=== PATIENT | male | born 1935 | race Two or more races ===

== ENCOUNTER 2019-10-02 08:45 | Emergency (ER) | payer MEDICARE ==
[~2019-10-02] VITALS: Ht 172.7 cm; Wt 70.9 kg
[2019-10-02 09:09] VITALS: BP 148/66
--- NOTE | 2019-10-02 09:23 | PHYS DOC ---
Past History Past Medical History: COPD, High Cholesterol, Hypertension, Hypothyroid Additional Past Surgical Histo: AAA repair Smoking: Quit Greater Than 1 Year Adult General Chief Complaint Chief Complaint: LOWER EXTREMITY SWELLING HPI HPI Patient is an 84-year-old male who presents to the emergency department for evaluation. He had an endovascular AAA repair last Monday at [facility], and was released Monday. He has developed pain in his right leg, in his medial though, worsened with movement. Also has developed some pedal edema, which seems slightly more prominent on the right than left. Denies chest pain or shortness of breath, denies pleuritic pain, dizziness or lightheadedness. There are no alleviating or exacerbating factors to his symptoms, except that movement worsens his pain. Review of Systems Review of Systems Constitutional: Denies fever or chills [] Eyes: Denies change in visual acuity, redness, or eye pain [] HENT: Denies nasal congestion or sore throat [] Respiratory: Denies cough or shortness of breath [] Cardiovascular: The patient denies any shortness of breath, chest pain, palpitations, or orthopnea [] GI: Denies abdominal pain, nausea, vomiting, bloody stools or diarrhea [] : Denies dysuria or hematuria [] Musculoskeletal: Denies back pain or joint pain [] Integument: Denies rash or skin lesions [] Neurologic: Denies headache, focal weakness or sensory changes [] Endocrine: Denies polyuria or polydipsia [] All other systems were reviewed and found to be within normal limits, except as documented in this note. Allergies Allergies Allergies Coded Allergies Type Severity Reaction Last Updated Verified No Known Drug Allergies 10/02/19 No Physical Exam Physical Exam PHYSICAL EXAM: CONSTITUTIONAL: Well developed, well nourished HEAD: normocephalic, atraumatic EENT: PERRL, EOMI. Conjunctivae normal color, sclerae non-icteric; moist mucous membranes. NECK: Supple, non-tender; no meningismus. LUNGS: Lungs CTA, breathing even and unlabored. Normal air movement. HEART: Regular rate and rhythm, no murmur CHEST: No deformity; non-tender ABDOMEN: The abdomen is soft, and non-tender, no masses or bruits. EXTREM: Normal ROM; no deformity, no calf tenderness. Normal pulses palpable in all extremities. There is mild bilateral pitting pedal edema, questionably more prominent on the right than on the left. There is an approximately golf ball size nodular lesion in the right groin, possibly related to postoperative hematoma, with a clean incision in the right groin. There is no significant warmth or erythema to the skin. There is no reproducible tenderness to palpation to the soft tissues of the medial right thigh. SKIN:, Warm, dry, no diaphoresis, no rashes. NEURO: Alert; normal speech and cognition; CN's grossly intact; strength grossly intact without focal deficit. BACK: No CVA TTP. Current Patient Data Lab Results Laboratory Tests Test 10/02/19 09:06 White Blood Count 8.5 x10^3/uL Red Blood Count 3.98 x10^6/uL Hemoglobin 12.4 g/dL Hematocrit 37.1 % Mean Corpuscular Volume 93 fL Mean Corpuscular Hemoglobin 31 pg Mean Corpuscular Hemoglobin Concent 34 g/dL Red Cell Distribution Width 13.3 % Platelet Count 178 x10^3/uL Neutrophils (%) (Auto) 69 % Lymphocytes (%) (Auto) 16 % Monocytes (%) (Auto) 11 % Eosinophils (%) (Auto) 4 % Basophils (%) (Auto) 1 % Neutrophils # (Auto) 5.9 x10^3uL Lymphocytes # (Auto) 1.4 x10^3/uL Monocytes # (Auto) 0.9 x10^3/uL Eosinophils # (Auto) 0.4 x10^3/uL Basophils # (Auto) 0.0 x10^3/uL Sodium Level 140 mmol/L Potassium Level 3.7 mmol/L Chloride Level 104 mmol/L Carbon Dioxide Level 25 mmol/L Anion Gap 11 Blood Urea Nitrogen 22 mg/dL Creatinine 1.4 mg/dL Estimated GFR (Cockcroft-Gault) 48.5 BUN/Creatinine Ratio 16 Glucose Level 128 mg/dL Calcium Level 9.0 mg/dL Total Bilirubin 1.3 mg/dL Aspartate Amino Transf (AST/SGOT) 16 U/L Alanine Aminotransferase (ALT/SGPT) 20 U/L Alkaline Phosphatase 78 U/L HN-[id number]-Type Natriuretic Peptide 150 pg/mL Total Protein 7.4 g/dL Albumin 2.9 g/dL Albumin/Globulin Ratio 0.6 EKG EKG Normal sinus rhythm at a rate of 77 beats for minute, left axis deviation, left anterior fascicular block, there are no acute ischemic ST/T changes.[] Radiology/Procedures Radiology/Procedures PROCEDURE: PORTABLE CHEST 1V PORTABLE CHEST 1V History: Pedal edema.. No prior for comparison. Cardiac silhouette not enlarged. Aorta mildly ectatic/tortuous. No evidence of pneumothorax. No pleural effusion. No consolidating infiltrate. Bones appear grossly intact. IMPRESSION: No evidence of consolidating infiltrate. [] PROCEDURE: ARTERIAL STUDY LOWER EXT RIGHT RIGHT LOWER EXTREMITY DUPLEX ARTERY ULTRASOUND Indication: Right groin lump post abdominal aorta aneurysm repair. Comparison: None. Procedure: Real-time grayscale, color flow Doppler, and Doppler spectral waveform analysis of the right groin is performed. Findings: The right common femoral artery is not visualized due to shadowing and bandage material. There is monophasic flow in the proximal superficial femoral artery, peak systolic velocity 89 cm/s. At the area of palpable concern there is a mildly complex fluid collection measuring 2.8 x 3.4 x 2.4 cm. Color Doppler interrogation of the fluid is negative. IMPRESSION: At the area of palpable concern there is a mildly complex fluid collection that may be a seroma or hematoma. Color Doppler interrogation does not demonstrate any blood flow. PROCEDURE: VENOUS LOWER EXTREMITY RIGHT Right lower extremity venous real time grayscale, color and spectral duplex ultrasound was performed. History: Right lower extremity swelling and pain status post AAA repair, possible DVT Comparison: None The right common femoral, femoral, and popliteal veins demonstrate anechoic lumina, full compressibility, augmentable waveforms, and cephalad color Doppler flow. The posterior tibial are also patent. Normal flow is also seen in the cephalad portion of the saphenous vein. Impression: No evidence of DVT in the right lower extremity. Course & Med Decision Making Course & Med Decision Making Pertinent Labs and Imaging studies reviewed. (See chart for details) []10:00 AM:Patient remains stable. I discussed test results, the need for close follow-up, and return precautions. Dragon Disclaimer Dragon Disclaimer This electronic medical record was generated, in whole or in part, using a voice recognition dictation system. Departure Departure: Impression: Primary Impression: Leg pain Additional Impression: Postoperative hematoma Disposition: 01 HOME, SELF-CARE Condition: STABLE Referrals: NONA MARTINEZ MD (PCP) Patient Instructions: Hematoma, Leg Cramps, Peripheral Edema Problem Qualifiers SANTOS THORPE MD Oct 02, 2019 09:23
[2019-10-02 09:24] LABS: BASO % 1 % (0-3); EOS # 0.4 x10^3/uL (0.0-0.7); EOS % 4 % (0-3); HEMATOCRIT 37.1 % (39.0-53.0); HEMOGLOBIN 12.4 g/dL (13.0-17.5); LYMPH # 1.4 x10^3/uL (1.0-4.8); LYMPH % 16 % (24-48); MEAN CORPUSCULAR HEMOGLOBIN 31 pg (25-35); MEAN CORPUSCULAR HGB CONC 34 g/dL (31-37); MEAN CORPUSCULAR VOLUME 93 fL (79-100); MONO # 0.9 x10^3/uL (0.0-1.1); MONO % 11 % (0-9); NEUT # 5.9 x10^3uL (1.8-7.7); NEUT % 69 % (31-73); PLATELET COUNT 178 x10^3/uL (140-400); RED BLOOD COUNT 3.98 x10^6/uL (4.30-5.70); RED CELL DISTRIBUTION WIDTH 13.3 % (11.5-14.5); WHITE BLOOD COUNT 8.5 x10^3/uL (4.0-11.0)
[2019-10-02 09:34] LABS: CREATININE 1.4 mg/dL (0.7-1.3); GFR 48.5; POTASSIUM 3.7 mmol/L (3.5-5.1)
--- NOTE | 2019-10-02 09:41 | RAD ---
Right lower extremity venous real time grayscale, color and spectral duplex ultrasound was performed. History: Right lower extremity swelling and pain status post AAA repair, possible DVT Comparison: None The right common femoral, femoral, and popliteal veins demonstrate anechoic lumina, full compressibility, augmentable waveforms, and cephalad color Doppler flow. The posterior tibial are also patent. Normal flow is also seen in the cephalad portion of the saphenous vein. Impression: No evidence of DVT in the right lower extremity. Electronically signed by: Abdullahi Traore MD (10/02/2019 9:38 AM) [id number]
[2019-10-02 09:46] LABS: ALBUMIN 2.9 g/dL (3.4-5.0); ALBUMIN/GLOBULIN RATIO 0.6 (1.0-1.7); TOTAL BILIRUBIN 1.3 mg/dL (0.2-1.0); TOTAL PROTEIN 7.4 g/dL (6.4-8.2)
--- NOTE | 2019-10-02 09:53 | RAD ---
PORTABLE CHEST 1V History: Pedal edema.. No prior for comparison. Cardiac silhouette not enlarged. Aorta mildly ectatic/tortuous. No evidence of pneumothorax. No pleural effusion. No consolidating infiltrate. Bones appear grossly intact. IMPRESSION: No evidence of consolidating infiltrate. Electronically signed by: Tao Gordon MD (10/02/2019 9:50 AM) [id number]
--- NOTE | 2019-10-02 09:53 | RAD ---
RIGHT LOWER EXTREMITY DUPLEX ARTERY ULTRASOUND Indication: Right groin lump post abdominal aorta aneurysm repair. Comparison: None. Procedure: Real-time grayscale, color flow Doppler, and Doppler spectral waveform analysis of the right groin is performed. Findings: The right common femoral artery is not visualized due to shadowing and bandage material. There is monophasic flow in the proximal superficial femoral artery, peak systolic velocity 89 cm/s. At the area of palpable concern there is a mildly complex fluid collection measuring 2.8 x 3.4 x 2.4 cm. Color Doppler interrogation of the fluid is negative. IMPRESSION: At the area of palpable concern there is a mildly complex fluid collection that may be a seroma or hematoma. Color Doppler interrogation does not demonstrate any blood flow. Electronically signed by: Blair Winn MD (10/02/2019 9:50 AM) [id number]
--- NOTE | 2019-10-02 12:04 | EKG ---
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
== END 2019-10-02 10:10 | disposition home or self-care (01) ==
LOC: ER 08:45
DX: K91.871 Postprocedural hematoma of a digestive system organ or structure following other procedure (principal); M79.604 Pain in right leg; J44.9 Chronic obstructive pulmonary disease, unspecified; E78.00 Pure hypercholesterolemia, unspecified; I10 Essential (primary) hypertension; E03.9 Hypothyroidism, unspecified; Z87.891 Personal history of nicotine dependence
CPT/HCPCS: 36415; 71045; 80053; 83880; 85025; 93005; 93923; 93971; 99285